=== PATIENT | female | born 1955 | race Hispanic/Latino ===

== ENCOUNTER 2018-02-13 11:27 | Day surgery (SDC) | payer OTHER ==
[~2018-02-13 11:27] MED LIST: ANCEF/STERILE WATER 2 GM/20 ML IV NR; MARCAINE-EPI 0.25%-1:200,000 INFILTRATI ONE; NACL 0.9% 1000 ML 1,000 ML IV SCH; NACL 0.9% IR ONE
[2018-02-13] MEDS ORDERED: MARCAINE-EPI 0.25%-1:200,000 INFILTRATI ONE (11:56)
--- NOTE | 2018-02-13 12:10 | Anesthesia Consultation ---
Anesthesia Consult and Med Hx Date of service: 02/13/18 - Airway Anesthetic Teeth Evaluation: Poor ROM Head & Neck: Adequate Mental/Hyoid Distance: Adequate Mallampati Class: Class III Intubation Access Assessment: Possibly Difficult - Pulmonary Exam CTA: Yes - Cardiac Exam Cardiac Exam: RRR - Pre-Operative Health Status ASA Pre-Surgery Classification: ASA4 Proposed Anesthetic Plan: General - Pulmonary Hx Respiratory Symptoms: No (obesity) COPD: Yes (MILD) Hx Sleep Apnea: Yes - Cardiovascular System Hx Hypertension: Yes (10 YEARS) Hx Coronary Artery Disease: Yes Hx Angina: Yes Hx Percutaneous Transluminal Coronary Angioplasty (PTCA): Yes (stent x1 on aspirin till 4 days ago) - Central Nervous System Hx Psychiatric Problems: No - Gastrointestinal Hx Gastroesophageal Reflux Disease: Yes - Endocrine Hx Non-Insulin Dependent Diabetes: Yes - Other Systems Hx Alcohol Use: Yes (SOCIALLY) Hx Substance Use: No Hx Cancer: No
--- NOTE | 2018-02-13 12:11 | Anesthesia Day of Surgery ---
Anesthesia Day of Surgery - Day of Surgery Patient Examined: Yes Patient H&P Reviewed: Yes Patient is NPO: Yes Beta Blockers: No Cardiac Clearance: No Pulmonary Clearance: No
[2018-02-13] MEDS ORDERED: DILAUDID IV PRN (12:32)
[2018-02-13] MEDS ORDERED: NACL BACTERIOSTATIC INFILTRATI ONE (12:41)
[2018-02-13] MEDS ORDERED: ANCEF/STERILE WATER 2 GM/20 ML IV NR (13:00)
[2018-02-13] MEDS ORDERED: DILAUDID ONE (13:52)
[2018-02-13] MEDS ORDERED: DIPRIVAN 10 MG/ML IV ONE (13:53)
[2018-02-13] MEDS ORDERED: ANCEF ONE ×2 (13:53)
[2018-02-13] MEDS ORDERED: ZEMURON IV ONE (13:53)
[2018-02-13] MEDS ORDERED: XYLOCAINE MPF 2% ONE (13:53)
[2018-02-13] MEDS ORDERED: SUBLIMAZE ONE (14:08)
[2018-02-13] MEDS ORDERED: ROBINUL ONE ×2 (14:25→14:32)
[2018-02-13] MEDS ORDERED: TORADOL ONE (14:25)
--- NOTE | 2018-02-13 14:50 | Operative Report ---
Operative Report Operative Report: Date of procedure: 02/13/2018 Pre-operative diagnosis: Biliary colic with cholelithiasis Post-operative diagnosis: Same Procedure name(s): Laparoscopic cholecystectomy Surgeon: Joi Gomez MD Bread Pan Greaser: Jamshid Bennett M.D. Anesthesia: General EBL: Minimal Complications: None Instrument Count: correct Indications: This is a 62-year-old female with a history of right upper quadrant pain. Her workup was consistent with a biliary etiology. She was offered the above named procedures a possible treatment modality. The risks and benefits were discussed and all questions were answered. She was subsequently brought to the OR. Findings: As above Procedure: We reviewed the informed consent. We placed the patient supine upon the table. After adequate anesthesia was reached, the patient was prepped and draped in usual sterile fashion. A 5 mm incision was made the level of umbilicus and a Veress needle was placed at this position. The abdomen was then insufflated to 15 mmHg and a 5 mm trocar was placed through the umbilical incision. We inserted the camera at this time. Under direct vision and after infiltration of local anesthetic an 11 mm port was placed in the epigastric location. This was followed by placement of two five mm ports in the right upper quadrant. We identified the gallbladder and the fundus was grasped. This was retracted superiorly. We then grasped the infundibulum and retracted it laterally. At this time we dissected free the cystic duct infundibular junction until the triangle of Calot was clearly identified. We placed 3 clips proximally on the cystic duct, 2 distally. We placed 2 clips proximally on the cystic artery. We transected the cystic duct sharply. We transected the cystic artery using electrocautery. We then dissected the gallbladder free from its fossa using electrocautery. This was placed in Endo Catch bag and removed the abdomen to be sent to pathology for further evaluation. We assured hemostasis at this time. We then evacuated the insufflation. We removed all ports and closed all port sites using a 4-0 Monocryl in a subcuticular fashion. The wounds were bandaged sterilely. The patient tolerated procedure well. They were taken to PACU in no apparent distress after extubation.
--- NOTE | 2018-02-13 14:54 | Short Stay Summary ---
Short Stay Documentation Date of service: 02/13/18 - History H&P: obtained from office - Allergies and Medications Current Medications: Allergies No Known Allergies Allergy (Verified 02/08/18 10:16) Home Medications Medication Instructions Recorded Confirmed Last Taken Type Aspirin EC [Aspirin Enteric Coated 81 mg PO DAILY 03/20/15 02/13/18 02/08/18 History TAB] Fosinopril (Nf) 20 mg PO DAILY 03/20/15 02/08/18 02/12/18 History Metformin HCl 1,000 mg PO BID 03/20/15 02/08/18 02/12/18 History Metoprolol [Lopressor TAB] 25 mg PO BID 03/20/15 02/13/18 02/13/18 09:00 History Rosuvastatin Calcium [Crestor] 20 mg PO DAILY 03/20/15 02/08/18 02/12/18 History Bimatoprost [Lumigan] 2.5 ml OP DAILY 02/08/18 02/08/18 02/12/18 History Empagliflozin [Jardiance] 25 mg PO DAILY 02/08/18 02/08/18 02/12/18 History Fluticasone/Vilanterol [Breo 1 each IH DAILY 02/08/18 02/13/18 02/13/18 09:00 History Ellipta 100-25 Mcg INH] amLODIPine [Norvasc] 10 mg PO DAILY 02/08/18 02/08/18 02/12/18 History glipiZIDE [Glucotrol] 5 mg PO BID 02/08/18 02/08/18 02/12/18 History Efinaconazole [Jublia] 1 drop TRANSDERMA DAILY 02/13/18 02/13/18 02/12/18 History Active Medications Cefazolin Sodium (Ancef/Sterile Water 2 Gm/20 Ml) 2 gm IV PREOP NR Stop: 02/13/18 23:59 Hydromorphone HCl (Dilaudid) 0.5 mg IV Q10MIN PRN PRN Reason: Pain , Severe (7-10) Sodium Chloride (Nacl 0.9% 1000 Ml) 1,000 mls @ 42 mls/hr IV DIRECT ES Last Admin: 02/13/18 12:55 Dose: 42 mls/hr - Brief post op/procedure progress note Date of procedure: 02/13/18 Pre-op diagnosis: biliary colic with cholelithiasis Post-op diagnosis: same Anesthesia: GETA Surgeon: SHAYE WESTBROOK Estimated blood loss: minimal Pathology: list (gallbladder) Specimen disposition: to lab Condition: stable - Disposition Condition at discharge: Stable Disposition: - TO HOME OR SELFCARE Short Stay Discharge Plan Activity: no restrictions, advance as tolerated Diet: low fat Wound: keep clean and dry Follow up with: CRISTOBAL BARRIENTOS MD [Primary Care Provider] - 7 Days SHAYE WESTBROOK MD [Staff Physician] - 7 Days Prescriptions: Ondansetron [Zofran TAB] 4 mg PO Q8HR PRN #20 tablet PRN Reason: Nausea oxyCODONE /ACETAMINOPHEN [Percocet 5/325] 1 tab PO Q6HR PRN #30 tablet PRN Reason: Pain
[2018-02-13] MEDS ORDERED: PROVENTIL IH ONE (15:09)
[2018-02-13] MEDS ORDERED: PROVENTIL IH PRN (15:15)
[2018-02-13 18:09] VITALS: BP 115/54
== END 2018-02-13 17:45 | disposition home or self-care (01) ==
LOC: OR 11:27
PROVIDERS: ATTEND Surgery
DX: K80.64 Calculus of gallbladder and bile duct with chronic cholecystitis without obstruction (principal); K21.9 Gastro-esophageal reflux disease without esophagitis; I25.118 Atherosclerotic heart disease of native coronary artery with other forms of angina pectoris; I10 Essential (primary) hypertension; J44.9 Chronic obstructive pulmonary disease, unspecified; E11.9 Type 2 diabetes mellitus without complications; E78.5 Hyperlipidemia, unspecified; G47.30 Sleep apnea, unspecified; E66.9 Obesity, unspecified; Z95.5 Presence of coronary angioplasty implant and graft; Z98.890 Other specified postprocedural states; Z90.710 Acquired absence of both cervix and uterus; Z79.82 Long term (current) use of aspirin; Z79.84 Long term (current) use of oral hypoglycemic drugs
CPT/HCPCS: 47562; 82962; 88304; J0690; J1170; J1885; J2704; J3010; J7030

== ENCOUNTER 2018-03-29 09:03 | Outpatient (CLI) | payer OTHER ==
[2018-03-29 09:49] LABS: Blood Urea Nitrogen 11 mg/dL (7-17)
--- NOTE | 2018-03-29 10:15 | Cat Scan Report ---
CT CHEST WITHOUT CONTRAST: HISTORY: Abnormal findings on diagnostic imaging of other specified body s. COMPARISON: none. TECHNIQUE: Helical CT in 1.25mm intervals without IV contrast. Sagittal and coronal reformatted images. FINDINGS: Thyroid gland: Normal. Tracheobronchial tree: Normal. Esophagus: Normal. Heart: The heart is normal size. Moderate three-vessel coronary artery calcifications are noted. Pericardium: Normal. Mediastinum: No suspicious mediastinal mass or adenopathy. Lung Mcgow[place]: No parenchymal lung disease is appreciated. Minor linear scarring is noted in the left lower lobe. Pleural Spaces: Normal. Musculoskeletal: Moderate multilevel thoracic spondylosis is identified. No fracture or suspicious bony lesion. IMPRESSION: Essentially unremarkable CT chest without contrast. Coronary artery calcifications. Minor linear scarring in the left lower lobe. Thoracic spondylosis.
== END 2018-03-29 09:04 | disposition home or self-care (01) ==
LOC: CT 09:03
PROVIDERS: ATTEND Internal Medicine Critical Care Medicine
DX: I25.10 Atherosclerotic heart disease of native coronary artery without angina pectoris (principal); M47.894 Other spondylosis, thoracic region; I10 Essential (primary) hypertension; E78.5 Hyperlipidemia, unspecified; K21.9 Gastro-esophageal reflux disease without esophagitis; E11.9 Type 2 diabetes mellitus without complications; Z87.891 Personal history of nicotine dependence
CPT/HCPCS: 36415; 71250; 82565; 84520